=== PATIENT | female | born 1965 | race Caucasian/White ===

== ENCOUNTER 2025-01-23 12:01 | Outpatient (AMB) | payer OTHER, SELFPAY ==
--- NOTE | 2025-01-23 12:03 | A.OFFPC_ITS ---
Vital Signs 01/23/25 12:10 Height 5 ft 4 in Weight 184 lb BMI 31.6 BP 136/80 Blood Pressure Location Lt brachial Position Sitting Respiration 13 Pulse 72 Pulse Source Pulse Oximeter Temp 96.9 F Temp Source Oral Pulse Oximetry (%) 98 Oxygen Delivery Method Room Air Intake Visit Reasons: CPE Intake Note: New patient to establish care and cpe Rn Staffing Required: No Allergies erythromycin base Allergy (Severe, Verified 01/23/25 12:34) Vomiting Medication List - Last Reviewed 01/23/25 by Anthony Flood MA hydrochlorothiazide 12.5 mg PO DAILY olmesartan 20 mg PO DAILY Tobacco use date assessed: 01/23/25 Dental Screening Dental Screen Date: 01/23/25 Did you have a dental visit in the last 12 months?: Yes Did you have a dental problem in the last 6 months where you did not have access to dental care?: No Was dental information given to patient?: Patient has dentist HPI HPI Comments History of Present Illness Details 60 y/o F with obesity, HTN, menopause, b freddie cell of skin Social: 2 children, lung ca age 60(Pritesh) Surgery: none Family hx: Mom lung ca dx age 70; Dad kidney ca Health Maintenance Tdap declined Mammo to be done by INCINERATOR OPERATOR, last one 2022 Colon has never had one. cologaurd ordered today DEXA to be ordered by INCINERATOR OPERATOR PAP ff'd by Dr [facility] Dr Kent manages BP Bench Worker Dr Marie [facility] Sep 2024, glasses [facility] History of Present Illness - The patient is a 60-year-old female pr esenting to establish care & for cPE . previous PCP: Dr Light No records - Essential hypertension managed with hy drochlorothiazide 12.5 mg and olmesartan 20 mg, by Dr Kent - Intentional weight loss of 14 pounds s october. Exercising - Obesity managed with exercise and life style changes. - Recently diagnosed with basal cell car cinoma of skin; plans for cauterization. Past Surgical History - No prior surgical procedures reported. Family History - Mother: Lung cancer, non-smoker. - Father: Kidney cancer. - : Lung cancer. - Paternal aunt: Breast cancer. Social History - Regular exercise: Engages in workouts through online sessions with a fitness expert. Also, participates in planned meal strategies. - Weight management: Focused on weight l oss, having successfully lost 14 pounds since October. - No substance use mentioned. Health Maintenance - Blood pressure management: Tracked by Dr. Kent. - Dermatology care: Basal cell carcinoma diagnosis followed up for treatment. - Genetic cancer screening: Discussed cassidy mcdermott history of cancer; environmental factors suspected. - Patient education on Cologuard test fo r colon cancer screening due to family history of cancer, yet not first degree relative with colon cancer. - Eye exam: Last known in September, no r eported issues of glaucoma or cataracts. Review of Systems pod[facility]ry has fat pads to ankles, managed by podiatry - Cardiovascular: Denies chest pain or d iscomfort. - Gastrointestinal: Denies difficulty wi th defecation. - Musculoskeletal: Denies joint pain. - Dermatological: Reports basal cell car cinoma spot on skin. - General: Denies dizziness upon positio n changes. Physical Exam General: Well developed, well nourished, in no acute distress. Appears stated age. Head: Normocephalic, atraumatic. Eyes: Pupils are equal, round and reactive to light and accommodation. Conjunctivae are clear. Vision grossly normal. Ears: TMs clear AU, EACS WNL Nose: Patent, without discharge. Neck: Supple, no adenopathy or thyromegaly. No pain or tenderness noted. Breast: Edu on SBE. Lungs: Clear to auscultation bilaterally. No rales, rhonchi or wheeze noted. Good air flow in all prather. Heart: Regular rate and rhythm. No murmurs, click, rubs or gallops are noted. Abdomen: Bowel sounds present in all quadrants. The abdomen is soft, nontender, with no masses or organomegaly noted. No hernias are noted. : Deferred. Reviewed NATHAN & recommendations for routine INCINERATOR OPERATOR. Patient is post- menopausal. Pulses: Peripheral pulses are equal and palpable bilaterally. Extremities: No clubbing, cyanosis nor edema is noted. Neurologic: Gait and station normal. Cranial Nerves 2-12 intact. Motor strength grossly symmetrical and intact. No sensory loss. Balance normal. Skin: No rashes, ulcers, or lesions noted. Turgor is good. Skin color is good. Hair and nails are without abnormalities. Psych: Normal eye contact, affect and mood appropriate, and normal interactions. Patient is alert and appropriate to context. Discussion Notes During the visit, I reviewed the patient's existing blood pressure regimen which includes hydrochlorothiazide and olmesartan, confirming that it is appropriate given her hypertension history. Although she noticed occasional elevations, tracking by Dr. Kent should continue to help manage this condition. Her recent weight loss positively impacts her obesity status. I discussed the significance of the basal cell carcinoma diagnosis, indicating the plans for removal and future dermatology follow-ups. A Cologuard test was recommended for colon cancer screening due to her familial cancer history, despite no first degree relative with colorectal cancer. Emphasized the importance of using the patient portal to facilitate communication and lab result availability as discussed. Encouraged maintaining exercise routines and continuing close monitoring of her overall health with wellness visits. Assessment and Plan 1. Essential Hypertension - Continue hydrochlorothiazide 12.5 mg a nd olmesartan 20 mg daily. - Follow up with Dr. Kent. 2. Obesity - Continue with current lifestyle and ex ercise plan. - Monitor weight closely. 3. Basal Cell Carcinoma - Proceed with planned cauterization. - Continue dermatology follow-up. Patient Instructions - Take your blood pressure medications d aily as prescribed. - Keep up with your exercise routine and healthy eating. - Follow up with dermatology for your sk in treatments as planned. - Use the patient portal for efficient c ommunication with our office. - Complete the Cologuard test for colon cancer screening when you receive it. RT0 1 YEAR CPE, SOONER PRN Consent Patient was informed and verbally consented to the use of an ambient scribe for clinic note documentation during this visit. [facility] Medical History (Updated 01/23/25 @ 12:52 by Mounika Conde [facility]) HTN (hypertension) Surgical History (Updated 01/23/25 @ 12:13 by Anthony Flood MA) No pertinent past surgical history Family History (Updated 01/23/25 @ 12:15 by Anthony Flood MA) Father Substance abuse HTN (hypertension) Cancer Mother HTN (hypertension) Cancer Social History (Updated 01/23/25 @ 12:14 by Anthony Flood MA) Household Members: Spouse and Children Both parents involved: No Caregiver staying overnight: No Housing: House Are you a primary senior care manager to a significant other at home: No Do you presently have visiting nurse or other home services: No 75 years or older and lives alone: No Alcohol intake: never Patient Tobacco Use Status: Never used Tobacco e-Cigarette/Vaping Use: Never Used Second Hand Smoke Exposure: No service: No Current occupational status: employed and retired Current occupation: buisness consultan Cognitive needs: No Hearing needs: No Vision needs: Yes (wear glasses) Questionnaire PHQ-9 Over the last 2 weeks, how often have you been bothered by any of the following problems? 1. Little interest or pleasure in doing things: not at all 2. Feeling down, depressed, or hopeless: not at all 3. Trouble falling or staying asleep, or sleeping too much: not at all 4. Feeling tired or having little energy: not at all 5. Poor appetite or overeating: not at all 6. Feeling bad about yourself - or that you are a failure or have let yourself or your family down: not at all 7. Trouble concentrating on things, such as reading the newspaper or watching television: not at all 8. Moving or speaking so slowly that other people could have noticed. Or the opposite - being so fidgety or restless that you have been moving around a lot more than usual: not at all 9. Thoughts that you would be better off or of hurting yourself in some way: not at all Total score: 0 Depression Screening Interpretation: Negative Depression Screening Done: Yes 63663 - PHQ-9 Billing: Yes Source: Developed by Drs. Mart Sullivan, Michelle Gavin, Major Flores and colleagues, with an educational julius from [employer]. Thrive Questionnaire Date Thrive assessed: 01/23/25 I am a: Patient What is your living situation today?: I have a steady place to live Within the past 12 months, did the food you bought not last and you didn't have the money to get more?: Never true Within the past 12 months, did you worry whether your food would run out before you got money to buy more?: Never true Do you have trouble paying for medicines?: No Do you have trouble getting transportation to medical appointments?: No Do you have trouble paying your heating and electricity bill?: No Do you have trouble taking care of your child, family member or friend?: No Do you have trouble with day-to-day activities such as bathing, preparing meals, shopping, managing finances, etc.?: No Are you currently unemployed and looking for a job?: No Are you interested in more education?: No Please select the resources that you would like help with: None Currently or been in a relationship where the following occur: No concerns reported THRIVE Score: 0 AUDIT C Alcohol Use Questionnaire (AUDIT-C) 1. How often do you have a drink containing alcohol?: Never 3. How often do you have six or more drinks on one occasion?: Never Total Score: 0 Score Reviewed/Action Taken: Yes JOCELYNE-7 AMB Questionnaire JOCELYNE-7 Date JOCELYNE - 7 assessed: 01/23/25 Feeling nervous, anxious, or on edge: 1 = Several days Not being able to stop or control worryin = Not at all Worrying too much about different things: 0 = Not at all Trouble relaxin = Not at all Being so restless that it is hard to sit still: 0 = Not at all Becoming easily annoyed or irritable: 0 = Not at all Feeling afraid as if something awful might happen: 0 = Not at all Total JOCELYNE-7 score (0-4 normal; 5-9 mild; 10-14 moderate; 15-21 severe): 1 Source: Developed by Drs. Mart Sullivan, Michelle Gavin, Major Flores and colleagues, with an educational julius from [employer]. JOCELYNE-7 Assessment Billing JOCELYNE-7 Assessment Tool: JOCELYNE-7 Assessment 71941 Physical exam (Primary Care) Vital Signs: Last Vital Signs Temp 96.9 F 01/23/25 12:10 Pulse 72 01/23/25 12:10 Resp 13 01/23/25 12:10 BP 136/80 01/23/25 12:10 Pulse Ox 98 01/23/25 12:10 Oxygen Delivery Method Room Air 01/23/25 12:10 BMI result Body Mass Index 31.6 BMI Assessment/Plan discussion: High BMI High, discussed plan: lifestyle Tobacco/Smoking Status: Tobacco use Status Tobacco use date assessed 01/23/25 01/23/25 12:07 Patient Tobacco Use Status Never used Tobacco 01/23/25 12:14 e-Cigarette/Vaping Use Never Used 01/23/25 12:14 PHQ-9: PHQ-9 Score PHQ-9: Total score 0 01/23/25 12:07 Depression Screening Interpretation: Negative Thrive Assessment: Date of Thrive Assessment Date Thrive assessed 01/23/25 01/23/25 12:07 Currently or been in a relationship where the following occur: No concerns rep orted Coding Level of Care Code New Pt Prev Care 40-64y(95215) Diagnoses Encounter for general adult medical examination with abnormal findings Z00.01 Obesity (BMI 30-39.9) E66.9 Encounter to establish care Z76.89 Primary hypertension I10 Hypertension type: primary hypertension Tetanus, diphtheria, and acellular pertussis (Tdap) vaccination declined Z28.21 Family history of kidney cancer Z80.51 Family history of lung cancer Z80.1 Basal cell carcinoma (BCC) of skin of other part of torso C44.519 Basal cell carcinoma location: other part of trunk Additional Codes JOCELYNE-7 Assessment Billing - JOCELYNE-7 Assessment Tool: JOCELYNE-7 Assessment 93051 ([id number]) PHQ-9 - 24859 - PHQ-9 Billing: Yes ([id number]) Assessment & Plan Assessment & Plan (1) Encounter for general adult medical examination with abnormal findings: Code(s): Z00.01 - Encounter for general adult medical examination with abnormal findings Category: Medical (2) Obesity (BMI 30-39.9): Code(s): E66.9 - Obesity, unspecified Category: Medical (3) Encounter to establish care: Code(s): Z76.89 - Persons encountering health services in other specified circumstances (4) HTN (hypertension): Code(s): I10 - Essential (primary) hypertension Category: Medical Qualifiers: Hypertension type: primary hypertension Qualified Code(s): I10 - Essential (primary) hypertension (5) Tetanus, diphtheria, and acellular pertussis (Tdap) vaccination declined: Code(s): Z28.21 - Immunization not carried out because of patient refusal Category: Medical (6) Family history of kidney cancer: Comment: dad Code(s): Z80.51 - Family history of malignant neoplasm of kidney Category: Medical (7) Family history of lung cancer: Comment: Mom age 70 Code(s): Z80.1 - Family history of malignant neoplasm of trachea, bronchus and lung Category: Medical (8) Basal cell carcinoma of skin: Onset Date: 2024 Comment: [facility] Code(s): C44.91 - Basal cell carcinoma of skin, unspecified Category: Medical Qualifiers: Basal cell carcinoma location: other part of trunk Qualified Code(s): C44.519 - Basal cell carcinoma of skin of other part of trunk Plan . Orders: Orders Lipid Panel Today E66.9 - Obesity, unspecified, I10 - Essential (primary) hypertension Microalbumin, Random (w Creat) Today E66.9 - Obesity, unspecified, I10 - Essential (primary) hypertension Vitamin B12 and Folate Today E66.9 - Obesity, unspecified, I10 - Essential (primary) hypertension Vitamin D 25-OH Total Today E66.9 - Obesity, unspecified, I10 - Essential (primary) hypertension Complete Blood Count no Diff Today E66.9 - Obesity, unspecified, I10 - Essential (primary) hypertension Comprehensive Met. Panel Today E66.9 - Obesity, unspecified, I10 - Essential (primary) hypertension Hemoglobin A1c Today E66.9 - Obesity, unspecified, I10 - Essential (primary) hypertension TSH reflex Free T4 Today E66.9 - Obesity, unspecified, I10 - Essential (primary) hypertension Referrals Cologuard Test Z12.11 - Encounter for screening for malignant neoplasm of colon, Z12.12 - Encounter for screening for malignant neoplasm of rectum Patient Instructions: Patient Instructions - Take your blood pressure medications daily as prescribed. - Keep up with your exercise routine and healthy eating. - Follow up with dermatology for your skin treatments as planned. - Use the patient portal for efficient communication with our office. - Complete the Cologuard test for colon cancer screening when you receive it. Health screenings for women You should visit your health care provider from time to time, even if you are healthy. The purpose of these visits is to: Screen for medical issues Assess your risk for future medical problems Encourage a healthy lifestyle Update vaccinations and other preventive care services Help you get to know your provider in case of an illness Information Even if you feel fine, you should still see your provider for regular checkups. These visits can help you avoid problems in the future. For example, the only way to find out if you have high blood pressure is to have it checked regularly. High blood sugar and high cholesterol levels also may not have any symptoms in the early stages. A simple blood test can check for these conditions. There are specific times when you should see your provider or receive specific health screenings. The [place] Preventive Services Task Force publishes a list of recommended screenings. Below are screening guidelines for women ages 18 to 39. BLOOD PRESSURE SCREENING Your blood pressure should be checked at least once every 3 to 5 years if: Your blood pressure is in the normal range (top number less than 120 mm Hg and bottom number less than 80 mm Hg) You don't have risk factors for high blood pressure Ask your provider if you need your blood pressure checked more often if: The top number is 120 to 129 mm Hg or the bottom number is 70 to 79 mm Hg You have diabetes, heart disease, kidney problems, are overweight, or have certain other health conditions You have a first-degree relative with high blood pressure You are Black You had high blood pressure during a If the top number is 130 mm Hg or greater or the bottom number is 80 mm Hg or greater, this is considered stage 1 hypertension. Schedule an appointment with your provider to learn how you can reduce your blood pressure. Watch for blood pressure screenings in your area. Ask your provider if you can stop in to have your blood pressure checked. BREAST CANCER SCREENING Experts do not agree about the benefits of breast self-exams in finding breast cancer or saving lives. Talk to your provider about what is best for you. A screening mammogram is not recommended for most women under age 40. Your provider may discuss and recommend mammograms, MRI scans, or ultrasounds if you have an increased risk for breast cancer, such as: A mother or sister who had breast cancer at a young age (most often starting screening earlier than the age the close relative was diagnosed) You carry a high-risk genetic marker CERVICAL CANCER SCREENING Cervical cancer screening should start at age 21 years unless your provider advises otherwise. After the first test: Women ages 21 through 29 should have a Pap test every 3 years. Exoprts do not agree on whether HPV testing is recommended for this age group. Women ages 30 through 65 should be screened with either a Pap test every 3 years or the HPV test every 5 years or both tests every 5 years (called cotesting ). Women who have been treated for precancer (cervical dysplasia) should continue to have Pap tests for 20 years after treatment or until age 65, whichever is longer. If you have had your uterus and cervix removed (total hysterectomy), and you have not been diagnosed with cervical cancer or precancer (high grade cervical neoplasia), you do not need cervical cancer screening. CHOLESTEROL SCREENING Cholesterol screening should begin at: Age 45 for women with no known risk factors for coronary heart disease Age 20 for women with known risk factors for coronary heart disease Repeat cholesterol screening should take place: Every 5 years for women with normal cholesterol levels More often if changes occur in lifestyle (including weight gain and diet) More often if you have diabetes, heart disease, kidney problems, or certain other conditions DIABETES SCREENING You should be screened for diabetes starting at age 35 and then repeated every 3 years if you have no risk factors for diabetes. Screening may need to start earlier and be repeated more often if you have other risk factors for diabetes, such as: You have a first degree relative with diabetes. You are overweight or have obesity. You have high blood pressure, prediabetes, or a history of heart disease. Screening for diabetes should be done if you are planning to become and you are overweight and have other risk factors such as high blood pressure. DENTAL EXAM Go to the dentist once or twice every year for an exam and cleaning. Your dentist will evaluate if you need more frequent visits. EYE EXAM Have an eye exam every 5 to 10 years before age 40. If you have vision problems, have an eye exam every 2 years or more often if recommended by your provider. You should have an eye exam that includes an examination of your retina (back of your eye) at least every year if you have diabetes. IMMUNIZATIONS Commonly needed vaccines include: Flu shot: get one every year. COVID-19 vaccine: ask your provider what is best for you. Tetanus-diphtheria and acellular pertussis (Tdap) vaccine: have one at or after age 19 as one of your tetanus-diphtheria vaccines if you did not receive it as an adolescent. Tetanus-diphtheria: have a booster (or Tdap) every 10 years. Varicella vaccine: receive 2 doses if you never had chickenpox or the varicella vaccine. Hepatitis B vaccine: receive 2, 3, or 4 doses, depending on your exact circumstances. Measles, mumps, and rubella (MMR) vaccine: receive 1 to 2 doses if you are not already immune to MMR. Your provider can tell you if you are immune. Ask your provider about the human papillomavirus (HPV) vaccine if: You have not received the HPV vaccine in the past You have not completed the full vaccine series (you should catch up on this shot) Ask your provider if you should receive other immunizations if you have certain health problems that increase your risk for some diseases such as pneumonia. INFECTIOUS DISEASE SCREENING Women who are sexually active should be screened for chlamydia and gonorrhea up until age 25. Women 25 years and older should be screened for chlamydia and gonorrhea if at high risk. Screening for hepatitis C: All adults ages 18 to 79 should get a one-time test for hepatitis C. people should be screened at every . Screening for human immunodeficiency virus (HIV): All people ages 15 to 65 should get a one-time test for HIV. Depending on your lifestyle and medical history, you may also need to be screened for infections such as syphilis and HIV, as well as other infections. PHYSICAL EXAM All adults should visit their provider from time to time, even if they are healthy. The purpose of these visits is to: Screen for disease Assess your risk of future medical problems Encourage a healthy lifestyle Update your vaccinations and other preventive care services Maintain a relationship with a provider in case of an illness Your height, weight, and BMI should be checked at every exam. During your exam, your provider may ask you about: Depression and anxiety Diet and exercise Alcohol and tobacco use Safety issues, such as using seat belts, smoke detectors, and intimate partner violence Your medicines and risk for interactions SKIN SELF-EXAM Your provider may check your skin for signs of skin cancer, especially if you're at high risk, such as if you: Have had skin cancer before Have close relatives with skin cancer Have a weakened immune system OTHER SCREENING Talk with your provider about colon cancer screening if you have a strong family history of colon cancer or polyps, or if you have had inflammatory bowel disease or polyps yourself. Routine bone density screening of women under 40 is not recommended. Walk-In Care (Urgent Care): [facility] Make it Easy Walk-in for urgent medical issues such as: ? Seasonal Allergies ? Insect Bites ? Cough ? Diarrhea ? Acute Asthma Attacks ? Back, Knee or Joint Pain ? Ear Infection ? Fever without a Rash ? Headaches ? Nausea ? Exira Eye, Rash or Skin Irritation ? Sore Throat ? Sports Physicals ? Vomiting Most insurances are accepted. Patients do not need to be part of the [facility] to seek care at the walk-in clinic. Locations [address] [place] [address] , [place] [address] ? [phone] [facility] Walk-In Care in [place] provides services to ages 18 and over. Open Wednesday-Wednesday: 8 a.m. to 5 p.m. and Wednesday: 9 a.m. to 3 p.m.* *Hours may vary due to staffing availability. To confirm Walk-In Care hours in [place], please call [phone]. [address] [place] [address] ? [phone] [facility] Walk-In Care in [place] provides services to ages 12 and over. Open Wednesday-Wednesday: 8 a.m. to 5 p.m. Hours may vary due to staffing availability. To confirm Walk-In Care hours in [place], please call [phone]. LABORATORY SERVICES: [facility] ? Primary Location [address] [place] [address] Wednesday through Wednesday 6:00 AM ? 5:00 PM Wednesday 7:00 AM ? 11:00 AM* [phone] The [facility] is centrally located near the front entrance of the [facility] for easy outpatient access. Convenient parking is provided for outpatients. *Hours may vary due to staffing availability. To confirm Laboratory hours for any location, please call [phone]. Offsite Location For your convenience, we offer offsite laboratory draw stations at the following locations: [address] [place] [address] ? [address], [address] Wednesday through Wednesday 7:30 AM ? 1:00 PM* [phone] *Hours may vary due to staffing availability. To confirm Laboratory hours for any location, please call [phone]. [place] ? [address] Wednesday through Wednesday 6:00 AM ? 3:30 PM* Wednesday 6:30 AM ? 3 PM* [phone] *Hours may vary due to staffing availability. To confirm Laboratory hours for any location, please call [phone]. [address] [facility] Wednesday through Wednesday 7:30 AM ? 4:00 PM* [phone] *Hours may vary due to staffing availability. To confirm Laboratory hours for any location, please call [phone] [place] [address] Wednesday through 9:00 AM ? 4:00 PM* *Hours may vary due to staffing availability. To confirm Laboratory hours for any location, please call [phone]. Appointments are not necessary. Walk-ins are welcome. Like all the departments throughout the [facility], our Lab undergoes frequent reviews to ensure the quality and accuracy of test results, and our staff takes special pride in its status as a nationally accredited facility. Patient Portal: ONE PATIENT. ONE RECORD. BETTER CARE. [facility] has a fully integrated, cutting- edge mobile electronic health information system that has revolutionized the way we care for our patients and manage our organization. This system improves communication and coordination enabling us to provide safe, higher-quality care, and an overall positive experience for staff and patients. Our first priority, as always, is to deliver the highest quality care possible. The system is running in the background supporting that priority. This portal is for all [facility] services and practices. If you are experiencing any technical difficulties with enrolling or logging into the Patient Portal please complete the [facility] Patient Portal Technical Support Form. [facility] now offers a new secure on-line interactive tool for patients to review their health information ? ?Patient Portal. This interactive web portal will enable patients and their families to take an active role in their care by providing easy, secure access to their health information via the internet. The Patient Portal provides patients with instant access to their health information, including laboratory results, medications, allergies, demographic information, visit history, and more. In addition to managing their own care, parents and health care proxies with authorized consent will appreciate the ability to access the records of those individuals for whom they provide care. Please note: if you wish to gain access (Proxy) to another patient?s portal, you will be required to come to the Medical Records Department in person at [facility]. Both the patient giving proxy access and the proxy will need to provide photo identification and complete the appropriate authorization. The Patient Portal also allows track their appointments online. The [facility] Patient Portal also saves patients time by allowing them to submit updates to their demographic and contact information prior to their visits. Portal email notifications will also alert patients to any new activity on their portal, such as test results and new appointments. In order to initially enroll in the [facility] Patient Portal, you will need to enter some required information including the following: * your [facility] Medical Record number * your personal home email address * name * date of Please note: In order to enroll in the [facility] Patient Portal, we need to have your email address on file in your electronic medical record. ?The email address needs to be specific for one person (yourself) in order for your Portal enrollment to be successful. ?You can update your email address in person with our Registration staff when you are registering for a hospital visit. ?Otherwise, you will need to come to the Health Information Management (Medical Records) Department at [facility]. ?We are open from Wednesday ? Wednesday from 7:30 a.m. ? 4:30 p.m. ?You will be required to present a photo id. Once you have successfully enrolled in the Patient Portal, you will receive a one-time user id and password for the Portal, sent to your email address. ?This will allow you to log into the Patient Portal within 99 hrs and reset your own logon id and password, and define personal security questions. ?Once your permanent login and password have been set, you can log into the [facility] Patient Portal at any time via the blue button above or from the Portal Logon button on any page of the [facility] website. [facility] encourage all of our patients to enroll in Patient Portal as it presents a valuable opportunity for patients and their families to actively participate in their care and stay healthy Welcome to [facility]. ?We look forward to working with you.
[2025-01-23 12:10] VITALS: BP 136/80; PULSE 72; RESP 13; TEMP 36.1; O2SAT 98; BMI 31.6
--- OUTSIDE RECORDS SUMMARY | 2025-01-23 12:27 | XMS_ITS | Clinical Summary ---
Author Organization [facility] Address [address] [place] [address] Phone Care Team Providers Care Pharmaceutical Service Representative Name Role Phone Kael Condon DO Primary Care Provider [phone] Allergies Active Allergy Reactions Criticality Noted Date Comments Erythromycin Other (see comments) 02/03/2021 Medications hydroCHLOROthiaz marquise 12.5 MG tablet Take 1 tablet (12.5 mg total) by mouth 1 (one) time each day 90 tablet 3 06/05/2024 Active VITAMIN D PO Take by mouth Active olmesartan (BENICAR) 20 MG tablet TAKE 1 TABLET (20 MG TOTAL) BY MOUTH ONE TIME EACH DAY 90 tablet 3 12/04/2024 Active Active Problems Problem Noted Date Diagnosed Date Benign essential hypertension 02/03/2021 Encounters Date Type Department Care Team Description 12/03/2024 Refill [facility] [address] [place] [address] Cayetano Kent MD from Last 3 Months Family History Medical History Relation Comments Cancer Father skin BCC Gout Father Hypertension Father Cancer Mother lung CA Relation Status Comments Father Alive Mother Social History Tobacco Use Types Packs/Day Years Used Date Smoking Tobacco: Former Smokeless Tobacco: Never Tobacco Cessation:Counseling Given: Not Answered Alcohol Use Standard Drinks/Week Comments Yes 0 (1 standard drink = 0.6 oz pure alcohol) Alcoholic Drinks/day: Occasional social drink Comments Unknown Sex and Gender Information Value Date Recorded Sex Assigned at Not on file Legal Sex Female 5:08 PM EST Gender Identity Not on file Sexual Orientation Not on file Last Filed Vital Signs Vital Sign Reading Time Taken Comments Blood Pressure 127/85 06/22/2024 2:33 PM EDT Pulse 87 06/22/2024 2:33 PM EDT Temperature - - Respiratory Rate - - Oxygen Saturation 98% 02/28/2021 12:19 PM EDT Inhaled Oxygen Concentration - - Weight 86.6 kg (191 lb) 12/16/2023 3:17 PM EDT Height 162.6 cm (5' 4 ) 02/28/2021 12:19 PM EDT Body Mass Index 32.79 02/28/2021 12:19 PM EDT Plan of Treatment Health Maintenance Due Date Last Done Comments Breast Cancer Screening 1965 Hepatitis B Vaccine (1 of 3 - 19+ 3-dose series) 01/07 Pneumococcal Vaccine: 50+ Years (1 of 2 - PCV) 985 Colorectal Cancer Screening: Annual FOBT 2015 Colorectal Cancer Screening: Colonoscopy 2015 Colorectal Cancer Screening: Sigmoidoscopy 2015 Influenza Vaccine (Season Ended) [address] [facility] Care Teams Pharmaceutical Service Representative Relationship Specialty Start Date End Date Kael Condon DO [address] [place] [address] PCP - General Family Medicine 04/30/22
== END 2025-01-23 13:09 | disposition home or self-care (01) ==
LOC: HO.HMCFM 12:02
PROVIDERS: PCP Nurse Practitioner Family; Visit Provider Nurse Practitioner Family
DX: Z00.01 Encounter for general adult medical examination with abnormal findings (principal); E66.9 Obesity, unspecified; Z68.31 Body mass index [BMI] 31.0-31.9, adult; Z76.89 Persons encountering health services in other specified circumstances; I10 Essential (primary) hypertension; Z28.21 Immunization not carried out because of patient refusal; Z80.51 Family history of malignant neoplasm of kidney; Z80.1 Family history of malignant neoplasm of trachea, bronchus and lung; C44.519 Basal cell carcinoma of skin of other part of trunk

== ENCOUNTER → 2025-01-23 12:01 | Outpatient (BNVA) | payer OTHER, SELFPAY | PROVIDERS: PCP Nurse Practitioner Family; Visit Provider Nurse Practitioner Family | DX: Z00.01 Encounter for general adult medical examination with abnormal findings (principal); I10 Essential (primary) hypertension; E66.9 Obesity, unspecified; C44.519 Basal cell carcinoma of skin of other part of trunk; Z68.31 Body mass index [BMI] 31.0-31.9, adult; Z78.0 Asymptomatic menopausal state; Z76.89 Persons encountering health services in other specified circumstances; Z28.21 Immunization not carried out because of patient refusal; Z80.51 Family history of malignant neoplasm of kidney; Z80.1 Family history of malignant neoplasm of trachea, bronchus and lung | CPT/HCPCS: 96127 ==

== ENCOUNTER 2025-01-23 13:16 | Outpatient (REF) | payer OTHER, SELFPAY ==
[2025-01-23 14:25] LABS: Hematocrit 37.2 % (37.0-47.0); Hemoglobin 12.6 g/dl (12.0-16.0); Mean Corpuscular HGB Conc 33.9 g/dl (31.0-35.0); Mean Corpuscular Hemoglobin 30.7 pg (27.0-33.0); Mean Corpuscular Volume 90.5 fL (80.0-98.0); Mean Platelet Volume 10.7 fL (9.4-12.3); Platelet Count 301 X10*3/uL (160-400); Red Blood Count 4.11 X10*6/uL (4.20-5.50); Red Cell Distribution Width 11.9 % (11.0-16.0); White Blood Count 7.9 X10*3/uL (4.8-10.8)
[2025-01-23 14:38] LABS: Estimated Average Glucose 103 mg/dL; Hemoglobin A1C 110.3241 umol/L; Hemoglobin A1c % 5.2 % (<6.0)
[2025-01-23 15:05] LABS: Creatinine Urine 90.05 mg/dL; Microalbum/Creatinine Ratio Ur 9.9 ug/mg cr (<30)
[2025-01-23 15:11] LABS: Alanine Aminotransferase 17 U/L (0-31); Albumin Level 4.6 g/dL (3.5-5.0); Alkaline Phosphatase 83 U/L (39-117); Anion Gap 11 (12-20); Aspartate Amino Transferase 19 U/L (5-31); Bilirubin Total 0.4 mg/dL (0.0-1.0); Blood Urea Nitrogen 22 mg/dL (9-16); Calcium 9.5 mg/dL (8.4-10.2); Carbon Dioxide 30 mmol/L (22-29); Chloride 105 mmol/L (96-108); Cholesterol 201 mg/dL (<200); Estimated Glomerular Filt Rate > 60; Glucose Random 81 mg/dL (60-115); HDL Cholesterol 54 mg/dL (>40); LDL Cholesterol Calculated 127 mg/dL (<100); Potassium 3.5 mmol/L (3.3-5.1); Sodium 142 mmol/L (135-145); Total Protein 7.4 g/dL (6.5-8.0); Triglycerides 104 mg/dL (<150)
[2025-01-23 15:37] LABS: TSH reflex Free T4 1.77 uIU/mL (0.32-4.0); Vitamin D 25-OH Total 59.3 ng/mL (>30)
[2025-01-23 15:38] LABS: Folate 9.2 ng/mL (> or = 4.0); Vitamin B12 600 pg/mL (200-900)
== END 2025-01-23 13:17 | disposition home or self-care (01) ==
LOC: HO.WFDLDS 13:16
PROVIDERS: Visit Provider Nurse Practitioner Family
DX: I10 Essential (primary) hypertension (principal); E66.9 Obesity, unspecified; Z13.1 Encounter for screening for diabetes mellitus
CPT/HCPCS: 36415; 80053; 80061; 82043; 82306; 82570; 82607; 82746; 83036; 84443; 85027